=== PATIENT | female | born 2000 | race Caucasian/White ===

== ENCOUNTER 2019-06-18 06:55 | Emergency (ER) | payer OTHER ==
[~2019-06-18] VITALS: Ht 162.6 cm; Wt 66.0 kg
[2019-06-18 07:56] LABS: BASO % 0.9 % (0.0-1.0); EOS # 0.1 10^3/uL (0.0-0.5); EOS % 1.7 % (0.0-3.0); HEMATOCRIT 38.4 % (36.0-47.0); HEMOGLOBIN 12.7 g/dl (12.0-15.5); LYMPH # 1.9 10^3/uL (1.5-5.0); LYMPH % 39.9 % (24.0-44.0); MEAN CORPUSCULAR HEMOGLOBIN 30.4 pg (27.0-33.0); MEAN CORPUSCULAR HGB CONC 33.1 g/dl (32.0-36.5); MEAN CORPUSCULAR VOLUME 91.9 fl (80.0-96.0); MONO # 0.3 10^3/uL (0.0-0.8); MONO % 7.2 % (0.0-5.0); NEUTROPHILS # 2.4 10^3/uL (1.5-8.5); NEUTROPHILS % 50.1 % (36.0-66.0); PLATELET COUNT, AUTOMATED 241 10^3/uL (150-450); RED BLOOD COUNT 4.18 10^6/uL (4.00-5.40); WHITE BLOOD COUNT 4.7 10^3/uL (4.0-10.0)
[2019-06-18 08:28] LABS: ALT/SGPT 23 U/L (12-78); BILIRUBIN,TOTAL 0.5 MG/DL (0.2-1.0); BLOOD UREA NITROGEN 7 MG/DL (7-18); CALCIUM LEVEL 8.9 MG/DL (8.5-10.1); CARBON DIOXIDE LEVEL 25 MEQ/L (21-32); CHLORIDE LEVEL 109 MEQ/L (98-107); CREATININE FOR GFR 0.72 MG/DL (0.55-1.30); GLUCOSE, FASTING 93 MG/DL (70-100); POTASSIUM SERUM 4.1 MEQ/L (3.5-5.1); SODIUM LEVEL 141 MEQ/L (136-145); TOTAL PROTEIN 7.3 GM/DL (6.4-8.2)
--- NOTE | 2019-06-18 08:37 | REP ---
CT brain: 06/18/2019. Indication: Dizziness. Comparison: None. Technique: Unenhanced axial images of the brain were obtained from skull base to vertex. Findings: There is no acute intracranial hemorrhage, acute cortical infarction, mass effect, hydrocephalus or significant fluid within the visualized paranasal sinuses/mastoid air cells. Impression: No acute intracranial process. Electronically Signed by Paxton Gutierrez DO 06/18/2019 08:29 A
[2019-06-18 09:27] LABS: APPEARANCE, URINE CLOUDY (CLEAR); BACTERIA, URINE AUTO NEGATIVE (NEGATIVE); BILIRUBIN, URINE AUTO NEGATIVE (NEGATIVE); BLOOD, URINE BLOOD NEGATIVE (NEGATIVE); COLOR, URINE YELLOW (YELLOW); GLUCOSE, URINE (UA) AUTO NEGATIVE (NEGATIVE); KETONE, URINE AUTO NEGATIVE (NEGATIVE); LEUKOCYTE ESTERASE, URINE AUTO 3+ (NEGATIVE); MUCUS, URINE LARGE (NEGATIVE); NITRITE, URINE AUTO NEGATIVE (NEGATIVE); PROTEIN, URINE AUTO NEGATIVE (NEGATIVE); RBC, URINE AUTO 5 /HPF (0-3); SQUAMOUS EPITHELIAL CELL UR AU 5 /HPF (0-6); UROBILINOGEN, URINE AUTO 0.2 mg/dL (0.0-2.0); WBC, URINE AUTO 95 /HPF (0-3)
[2019-06-18 10:19] VITALS: BP 110/65
--- NOTE | 2019-06-18 16:32 | ECGEPIP ---
[facility] - ED Test Date: 2019-06-18 Pat Name: DEEPAK ANGELO Department: Room: - Gender: Female Cart Pusher: PERCY : 2000 Requested By: GRACIE Deleon PA-C Order Number: [id number] Reading MD: Maria Del Carmen Ward Measurements Intervals [place] Rate: 53 P: -7 UT: 138 QRS: 50 QRSD: 81 T: 43 QT: 412 QTc: 387 Interpretive Statements SINUS BRADYCARDIA POSSIBLE RIGHT VENTRICULAR CONDUCTION DELAY NSTTW abnormalities NO PRIOR Electronically Signed on 06-18-2019 16:32:07 EST by Maria Del Carmen Ward
== END 2019-06-18 10:23 | disposition home or self-care (01) ==
LOC: M ED 06:55
DX: R42 Dizziness and giddiness (principal); R20.0 Anesthesia of skin; R00.1 Bradycardia, unspecified; R51 Headache; H57.02 Anisocoria; Z88.5 Allergy status to narcotic agent

== ENCOUNTER → 2020-09-02 | Outpatient (REF) | payer BC ==
[2020-09-02 18:16] LABS: HEMATOCRIT 36.3 % (36.0-47.0); HEMOGLOBIN 12.7 g/dl (12.0-15.5); MEAN CORPUSCULAR HEMOGLOBIN 31.8 pg (27.0-33.0); MEAN CORPUSCULAR VOLUME 90.8 fl (80.0-96.0); PLATELET COUNT, AUTOMATED 243 10^3/uL (150-450); WHITE BLOOD COUNT 7.3 10^3/uL (4.0-10.0)
[2020-09-02 19:18] LABS: HEPATITIS C VIRUS ABY INDEX 0.1 INDEX (<0.8); HIV 1&2 SCREEN CENTAUR NEGATIVE (NEGATIVE)
== END ==
LOC: M PLALAB 15:11
PROVIDERS: ATTEND Advanced Practice Midwife
DX: Z34.01 Encounter for supervision of normal first pregnancy, first trimester (principal)

== ENCOUNTER → 2020-09-30 | Outpatient (REF) | payer BC ==
[2020-09-30 15:45] LABS: CHLAMYDIA DNA AMPLIFICATION POSITIVE (NEGATIVE); GC DNA AMPLIFICATION NEGATIVE (NEGATIVE)
== END ==
LOC: M SFHCWAGY 13:13
PROVIDERS: ATTEND Advanced Practice Midwife
DX: Z34.01 Encounter for supervision of normal first pregnancy, first trimester (principal); Z3A.00 Weeks of gestation of pregnancy not specified

== ENCOUNTER → 2020-10-27 | Outpatient (CLI) | payer BC | LOC: M WHC 11:35 | PROVIDERS: ATTEND Obstetrics & Gynecology | DX: Z34.82 Encounter for supervision of other normal pregnancy, second trimester (principal); Z3A.17 17 weeks gestation of pregnancy ==

== ENCOUNTER → 2020-11-12 | Outpatient (CLI) | payer BC ==
--- NOTE | 2020-11-13 06:14 | REP ---
INDICATION: ANATOMY COMPARISON: None. TECHNIQUE: Transabdominal obstetrical ultrasound with color Doppler evaluation. FINDINGS: Examination demonstrates a single live intrauterine in variable presentation. motion is identified by technologist. Placenta is noted posterior and grade 1 without evidence for placenta previa or abruption. Amniotic fluid volume is normal. Cervix measures 3.9 cm in length and appears closed.. Gestational age by current measurements 19 weeks 2 days with JAIME 04/06/2021. FHR equals 147 beats per minute. BPD: 4.4 cm at 19 weeks 3 days HC: 16.6 cm at 19 weeks 2 days AC: 13.8 cm at 19 weeks 1 day FL: 3.0 cm at there is 19 weeks 1 day HL: 2.9 cm at 19 weeks 3 days HC/AC: 1.20 Estimated weight 279 grams (15thpercentile). Anatomical assessment demonstrates normal structures including cranium, choroid plexus, cavum, cerebellum/posterior fossa, lungs, cardiac ventricular outflow tracts, diaphragm, stomach, cord insertion/three-vessel cord, kidneys/bladder, spine, and extremities. Limited evaluation of the nose/lips and echogenic focus in the left cardiac ventricle warrant further investigation. IMPRESSION: 1. Single live intrauterine in variable presentation demonstrating appropriate estimated weight. 2. Anatomical limitations as noted above warrant follow-up. <Electronically signed by Kang Thakkar > 11/13/20 [id number]
== END ==
LOC: M WHC 15:00
PROVIDERS: ATTEND Obstetrics & Gynecology
DX: Z34.92 Encounter for supervision of normal pregnancy, unspecified, second trimester (principal); Z3A.19 19 weeks gestation of pregnancy

== ENCOUNTER → 2020-11-27 | Outpatient (REF) | payer BC ==
[2020-11-27 17:05] LABS: CHLAMYDIA DNA AMPLIFICATION NEGATIVE (NEGATIVE); GC DNA AMPLIFICATION NEGATIVE (NEGATIVE)
== END ==
LOC: M SFHCWAGY 14:57
PROVIDERS: ATTEND Advanced Practice Midwife
DX: O99.891 Other specified diseases and conditions complicating pregnancy (principal)

== ENCOUNTER → 2020-12-17 | Outpatient (CLI) | payer BC ==
--- NOTE | 2020-12-17 10:27 | REP ---
INDICATION: F/U ANATOMY. COMPARISON: Comparison obstetric sonography November 12, 2020.. TECHNIQUE: Transabdominal obstetric sonography. FINDINGS: Scanning through the gravid uterus demonstrates a viable single intrauterine gestation in breech lie. motion is observed and heart rate is recorded at 149 beats per minute. A posterior placenta is seen, grade 1, without evidence of placenta previa. Closed cervical length is measured at 3.3 cm transabdominally. No extrauterine abnormality is observed. Amniotic fluid is subjectively normal. nose and lips are visualized on today's exam and normal in appearance. Scans taken at the head neck junction of the fetus show an area of anechoic fluid at the craniocervical junction which appears posterior. 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 Biometry chart: BPD 6.0 cm, 24 weeks 3 days Head circumference 22.1 cm, 24 weeks 1 day Abdominal circumference 19.3 cm, 24 weeks 0 days Femur length 4.3 cm, 24 weeks 1 day Humeral length 4.0 cm, 24 weeks 1 day HC AC ratio normal 1.14 Cephalic index normal 0.75 Estimated weight 661 g, 1 lb 7 oz, 14th percentile for 24 weeks 6 days IMPRESSION: Viable single intrauterine gestation at 24 weeks 1 days by today's composite sonographic criteria. JAIME by today's sonography April 07, 2021. No complication identified. Expected gestational age estimate based on prior sonography is 24 weeks 6 days JAIME by prior sonography April 02, 2021. Left ventricular outflow tract view still less than optimally visualized. Questionable area of fluid at the craniocervical junction of the fetus likely cisterna magna. Normal nose and lips. <Electronically signed by Rei Montes De Oca > 12/17/20 1024
== END ==
LOC: M WHC 08:02
PROVIDERS: ATTEND Advanced Practice Midwife
DX: Z36.9 Encounter for antenatal screening, unspecified (principal); Z3A.24 24 weeks gestation of pregnancy

== ENCOUNTER → 2020-12-25 | Outpatient (REF) | payer BC ==
[2020-12-25 13:27] LABS: HEMATOCRIT 29.5 % (36.0-47.0); HEMOGLOBIN 9.7 g/dl (12.0-15.5); MEAN CORPUSCULAR HGB CONC 32.9 g/dl (32.0-36.5); MEAN CORPUSCULAR VOLUME 94.2 fl (80.0-96.0); PLATELET COUNT, AUTOMATED 250 10^3/uL (150-450); RED BLOOD COUNT 3.13 10^6/uL (4.00-5.40)
[2020-12-25 14:49] LABS: CHLAMYDIA DNA AMPLIFICATION NEGATIVE (NEGATIVE); GC DNA AMPLIFICATION NEGATIVE (NEGATIVE)
== END ==
LOC: M PLALAB 10:49
PROVIDERS: ATTEND Advanced Practice Midwife
DX: O99.891 Other specified diseases and conditions complicating pregnancy (principal)

== ENCOUNTER → 2021-01-19 | Outpatient (CLI) | payer BC | LOC: M WHC 12:34 | PROVIDERS: ATTEND Advanced Practice Midwife | DX: O99.891 Other specified diseases and conditions complicating pregnancy (principal) ==

== ENCOUNTER → 2021-02-23 | Outpatient (CLI) | payer BC ==
[2021-02-23 17:19] LABS: HEMATOCRIT 33.4 % (36.0-47.0); HEMOGLOBIN 10.8 g/dl (12.0-15.5); MEAN CORPUSCULAR HEMOGLOBIN 29.9 pg (27.0-33.0); MEAN CORPUSCULAR HGB CONC 32.3 g/dl (32.0-36.5); MEAN CORPUSCULAR VOLUME 92.5 fl (80.0-96.0); PLATELET COUNT, AUTOMATED 231 10^3/uL (150-450); RED BLOOD COUNT 3.61 10^6/uL (4.00-5.40); WHITE BLOOD COUNT 9.4 10^3/uL (4.0-10.0)
== END ==
LOC: M PLALAB 13:50
PROVIDERS: ATTEND Advanced Practice Midwife
DX: O99.013 Anemia complicating pregnancy, third trimester (principal)

== ENCOUNTER → 2021-03-10 | Outpatient (REF) | payer BC | LOC: M SFHCWAGY 13:08 | PROVIDERS: ATTEND Advanced Practice Midwife | DX: Z34.03 Encounter for supervision of normal first pregnancy, third trimester (principal) ==

== ENCOUNTER 2021-04-08 16:26 | Inpatient (IN) | payer BC ==
[2021-04-08] VITALS (30 sets, daily range): BP systolic 101–170; BP diastolic 51–129
[~2021-04-08] VITALS: Ht 165.1 cm; Wt 83.3 kg
[2021-04-08] MEDS ORDERED: OXYTOCIN INJ 10 UNITS/ML VIAL (J2590) IM PRN (17:20)
[2021-04-08] MEDS ORDERED: LIDOCAINE 1% MDV 20ML VIAL INFIL PRN (17:20)
[2021-04-08] MEDS ORDERED: TRANEXAMIC ACID INJection 1,000 MG in NS 100 ML IV PRN (17:20)
[2021-04-08] MEDS ORDERED: METHYLERGONOVINE MALEATE 0.2 MG/ML VIAL (J2210) IM PRN (17:20)
[2021-04-08] MEDS ORDERED: CARBOPROST TROMETHAMINE 250 MCG/ML AMP IM PRN (17:20)
[2021-04-08] MEDS ORDERED: LR 1,000 ML IV SCH (17:20)
[2021-04-08] MEDS ORDERED: OXYTOCIN DRIP 30 UNITS in IV 1 EA IV PRN ×4 (17:20)
[2021-04-08] MEDS ORDERED: OXYTOCIN DRIP 30 UNITS in IV 1 EA IV SCH (17:20)
[2021-04-08 18:07] LABS: HEMATOCRIT 32.4 % (36.0-47.0); MEAN CORPUSCULAR HEMOGLOBIN 29.5 pg (27.0-33.0); MEAN CORPUSCULAR VOLUME 86.9 fl (80.0-96.0); PLATELET COUNT, AUTOMATED 254 10^3/uL (150-450); RED BLOOD COUNT 3.73 10^6/uL (4.00-5.40); WHITE BLOOD COUNT 10.4 10^3/uL (4.0-10.0)
--- NOTE | 2021-04-08 18:38 | HPE ---
HISTORY AND PHYSICAL DATE OF ADMISSION: 04/08/2021 HISTORY OF PRESENT ILLNESS: Mary is a 20-year-old 1 para 0 at 40 and 6/7th weeks gestation with an EDC of 04/02/2021 based on last menstrual period. She presents to labor and delivery today with a report of spontaneous rupture of membranes, clear fluid at 10 a.m. She reports continued leakage of fluid throughout the day. She does report some pink bloody show and the fetus has been active. The care was initiated at [facility] in the first trimester. The course was complicated by anemia as well as a positive chlamydia in the first trimester with a test to cure on December 25 that was negative. OBSTETRIC HISTORY: Primigravida. OBSTETRIC LABS: A positive, antibody screen negative, hepatitis C antibody negative, hepatitis C surface antigen negative, HIV negative, syphilis negative. Gonorrhea is negative. Chlamydia positive with test of cure. Gonorrhea negative. Chlamydia negative. Rubella immune. Gestational diabetic screening normal at 90, urine culture, no growth, and her GBS is negative. PAST MEDICAL HISTORY: Noncontributory. PAST SURGICAL HISTORY: Appendectomy, ankle surgery and wisdom tooth extraction. FAMILY HISTORY: Diabetes. SOCIAL HISTORY: The patient is a nonsmoker. There is a partner at beside and he appears to be supportive. She denies alcohol or drug use. She does have a history of chlamydia. No history of abuse, physical, sexual and emotional. ALLERGIES: Morphine which causes a rash. CURRENT MEDICATIONS: vitamins. OBJECTIVE: Temperature is 98.7, pulse is 100, respirations 18, BP is 138/73. He is alert and oriented x3. She does not appear uncomfortable with her contractions. heart rate is 130 with moderate variability. Positive accelerations. Negative decelerations. Contractions every 3 to 4 minutes, they palpate mild. Abdomen is gravid, cephalic presentation. Estimated weight is 8 pounds. Sterile speculum exam: Positive Valsalva, positive pooling, positive Nitrazine, positive Fern, clear fluid. Sterile vaginal exam: 3 to 4 cm dilated, 80% effaced, -2 station. ASSESSMENT: Intrauterine at 40 and 6/7th weeks, heart rate is Category 1, premature rupture of membranes. PLAN: Admit the patient to Labor and Delivery, out of bed ad kali, routine laboratories, a clear liquid diet, plan to start IV Pitocin to induce labor. The risks, benefits and alternatives have been reviewed with the patient. All of the patient's questions have been answered. She has been verbally consented for emergency surgery and blood products if they are necessary. I anticipate an active labor and a vaginal delivery. The patient is considering an epidural when she is uncomfortable with her labor. MARION
[2021-04-08] MEDS ORDERED: FENTANYL 2MCG/ML ROPIVACAINE 0.2% IN 0.9% NACL 100ML IVBAG As Ordered ONE (19:22)
[2021-04-08] MEDS ORDERED: ONDANSETRON 4MG/2ML VIAL IV PRN (21:25)
[2021-04-08] MEDS ORDERED: EPIDURAL COMMENT XX SCH (21:25)
[2021-04-08] MEDS ORDERED: ePHEDrine SULFATE 25 MG/5 ML(5MG/ML) SYRINGE IV PRN (21:25)
[2021-04-08] MEDS ORDERED: REFRIGERATOR IV KEYS XX PRN (21:25)
[2021-04-08] MEDS ORDERED: diphenhydrAMINE 50MG/ML VIAL (J1200) IV PRN (21:25)
[2021-04-08] MEDS ORDERED: NALOXONE INJ 0.4MG/1ML VIAL (J2310 PER 1MG) IV PRN (21:25)
[2021-04-08] MEDS ORDERED: FENTANYL/ROPIVACAINE/NACL BAG 100 ML EPIDURAL SCH (21:25)
[2021-04-08] MEDS ORDERED: LACTATED RINGER'S 1000 ML IV PRN (21:25)
[2021-04-08] MEDS ORDERED: EPIDURAL/PCA KEYS XX PRN (21:25)
[2021-04-09] VITALS (8 sets, daily range): BP systolic 101–139; BP diastolic 55–72
[2021-04-09] MEDS ORDERED: ANUSOL HC CREAM 30GM TOP PRN (01:25)
[2021-04-09] MEDS ORDERED: ACETAMINOPHEN TAB 650MG DOSE (2X325MG) PO PRN (01:25)
[2021-04-09] MEDS ORDERED: MEASLES,MUMPS,RUBELLA VACCINE INJ (MMR-II) (90707) SC SCH (01:25)
[2021-04-09] MEDS ORDERED: ACETAMINOPHEN 500 MG TAB PO PRN (01:25)
[2021-04-09] MEDS ORDERED: IBUPROFEN 600MG TAB PO PRN (01:25)
[2021-04-09] MEDS ORDERED: RHOGAM 300 MCG (1500 IU) INJ (J2790) IM SCH (01:25)
[2021-04-09] MEDS ORDERED: IBUPROFEN 800 MG TAB PO PRN (01:25)
[2021-04-09] MEDS ORDERED: DOCUSATE SODIUM 100MG CAPSULE PO PRN (01:25)
[2021-04-09] MEDS ORDERED: DIBUCAINE 1% OINTMENT 30GM TOP PRN (01:25)
[2021-04-09] MEDS ORDERED: METHYLERGONOVINE MALEATE 0.2 MG TAB PO PRN (01:25)
--- NOTE | 2021-04-09 06:43 | DN ---
DELIVERY NOTE DATE OF DELIVERY: 04/09/2021 TIME OF : GENDER: APGARS: LACERATIONS: ANESTHESIA: ESTIMATED BLOOD LOSS: COUNTS: DESCRIPTION OF DELIVERY: Mary is a 20-year-old 1 para 0-0-1 now who was admitted to labor and delivery with premature rupture of membranes. IV Pitocin was started and labor did ensue. She used an epidural for her labor coping. She reached complete dilation at 2352. She pushed to a normal spontaneous vaginal delivery of a live male infant in OA position with restitution to ROT position at 0049. There was a nuchal cord times one loose that was reduced manually at the time of delivery as well as a right compound hand. The shoulders delivered with gentle downward traction and the corpus immediately followed. Elida male was placed on the maternal abdomen crying and active. Cord was clamped times two once pulsations ceased and cut by the father of the baby under my direction. Spontaneous expulsion of an intact placenta with three-vessel cord by Dominique mechanism was at 0055. Uterine hemostasis achieved with IV Pitocin rapid infusion and uterine fundal massage. Estimated blood loss 350 mL. Perineum and vagina inspected and noted to have a first-degree midline laceration. Laceration was repaired with 3-0 Vicryl Rapide in the usual fashion. male weighed 3050 grams, Apgars 9/9, 6 pounds 12 ounces. Mom plans to breast feed. The family is undecided as to what they were going to name their son. At the close of delivery, lap counts, needle counts and instrument counts were correct and verified.
[2021-04-09] MEDS: PRENATAL VITAMINS CHEWABLE TABLET PO SCH (08:45)
[2021-04-10 06:00] VITALS: BP 105/61
--- NOTE | 2021-04-10 06:04 | IPNPDOC ---
Progress Note Date of Service: Apr 10, 2021 Progress Note SUBJECT: Status post . She has been ambulating, voiding spontaneously without issue and tolerating regular diet. Lochia decreasing/minimal. Pain is well-controlled. Denies headache, visual changes, right upper quadrant pain, shortness breath or chest pain. OBJECTIVE: VITAL SIGNS: Within normal limits, afebrile. Alert and oriented times three. Abdomen: Fundus firm at U-2. Soft, NTTP. ASSESSMENT: Status post uncomplicated spontaneous vaginal delivery. Vitals within normal limits, afebrile, hemodynamically stable with no evidence of infection. PLAN: Discharge to home later today or tomorrow. Tylenol and Motrin for pain. Routine instructions/precautions reviewed. Routine PP visit in 6 weeks in clinic. VS, I&O, 24H, Fishbone Vital Signs/I&O Vital Signs Date Time Temp Pulse Resp B/P (MAP) Pulse Ox O2 Delivery O2 Flow Rate FiO2 04/09/21 18:06 97.5 66 17 113/56 (75) 100 Room Air IVAN WALTERS DO Apr 10, 2021 06:03
[2021-04-10] MEDS: PRENATAL VITAMINS CHEWABLE TABLET PO SCH (08:58)
[2021-04-10 18:00] VITALS: BP 118/56
== END 2021-04-10 18:20 | disposition home or self-care (01) | DRG 560 ==
LOC: M LDO 16:26 → M LDI 17:15 → M OBS 04-09 03:20
PROVIDERS: ADMIT Advanced Practice Midwife; ATTEND Advanced Practice Midwife
PROC: 10E0XZZ Delivery of Products of Conception, External Approach (ICD-10-PCS; principal; 2021-04-09)
PROC: 0HQ9XZZ Repair Perineum Skin, External Approach (ICD-10-PCS; 2021-04-09)
DX: O42.02 Full-term premature rupture of membranes, onset of labor within 24 hours of rupture (principal); O48.0 Post-term pregnancy; Z3A.40 40 weeks gestation of pregnancy; O69.81X0 Labor and delivery complicated by cord around neck, without compression, not applicable or unspecified; O32.6XX0 Maternal care for compound presentation, not applicable or unspecified; O70.0 First degree perineal laceration during delivery; Z37.0 Single live birth

== ENCOUNTER → 2022-07-14 | Outpatient (REF) ==
[2022-07-14 16:58] LABS: RSV AMPLIFICATION NEGATIVE (NEGATIVE)
== END ==
LOC: M EMP 15:55
PROVIDERS: ATTEND Family Medicine
DX: Z11.52 Encounter for screening for COVID-19 (principal)

== ENCOUNTER → 2023-01-26 | Outpatient (REF) | LOC: M EMP 13:40 | PROVIDERS: ATTEND Family Medicine | DX: Z11.52 Encounter for screening for COVID-19 (principal) ==

== ENCOUNTER → 2023-08-23 | Outpatient (REF) | payer BC ==
[2023-08-25 13:49] LABS: PERCENT SATURATION 23.6 % (13.2-45.0)
[2023-08-25 13:52] LABS: FERRITIN 11.4 NG/ML (7.3-270.7)
== END ==
LOC: M LAB REF 12:36
PROVIDERS: ATTEND Internal Medicine
DX: D64.9 Anemia, unspecified (principal)

== ENCOUNTER → 2023-09-12 | Outpatient (CLI) | payer BC ==
[2023-09-12 16:57] LABS: HIV 1&2 SCREEN NEGATIVE (NEGATIVE)
[2023-09-12 17:04] LABS: HEPATITIS B CORE ANTIBODY IGM NEGATIVE (NEGATIVE); HEPATITIS C VIRUS ABY INDEX 0.02 INDEX (<0.8)
== END ==
LOC: M PLALAB 12:53
PROVIDERS: ATTEND Nurse Practitioner Family
DX: Z11.3 Encounter for screening for infections with a predominantly sexual mode of transmission (principal)

== ENCOUNTER → 2023-09-12 | Outpatient (REF) | payer BC | LOC: M PLALAB 13:17 | PROVIDERS: ATTEND Nurse Practitioner Family | DX: Z12.4 Encounter for screening for malignant neoplasm of cervix (principal); Z77.9 Other contact with and (suspected) exposures hazardous to health | CPT/HCPCS: 87490; 87590; 87661; G0123 ==

== ENCOUNTER → 2023-09-21 | Outpatient (REF) | LOC: M EMP 16:12 | PROVIDERS: ATTEND Family Medicine | DX: Z11.52 Encounter for screening for COVID-19 (principal) ==

== ENCOUNTER → 2023-11-01 | Outpatient (REF) | payer BC | LOC: M SFHCWAGY 18:16 | PROVIDERS: ATTEND Nurse Practitioner Family | DX: Z12.4 Encounter for screening for malignant neoplasm of cervix (principal); R87.615 Unsatisfactory cytologic smear of cervix ==